=== PATIENT | male | born 1940 | race Caucasian/White ===

== ENCOUNTER 2019-08-20 08:02 | Day surgery (SDC) | payer BC, MEDICARE ==
[2019-08-20] MEDS ORDERED: Dextrose 5%-Lactated Ringers 1,000 ML IV SCH (08:30)
[2019-08-20] MEDS ORDERED: Propofol 200 MG/20 ML SDV ONE (09:59)
[2019-08-20] MEDS ORDERED: Midazolam 1 MG/ML 2 ML SDV ONE (09:59)
[2019-08-20] MEDS ORDERED: fentaNYL 100 MCG/2 ML SDV ONE (09:59)
--- NOTE | 2019-08-30 10:49 | OR ---
DATE OF PROCEDURE: 08/20/2019 SURGEON: Harry Waters MD PREOPERATIVE DIAGNOSIS: History of colon polyps. POSTOPERATIVE DIAGNOSIS: 1. No recurrent colon polyps. 2. Pandiverticulosis. 3. Widespread colonic arteriovenous malformations. OPERATIVE PROCEDURE: Flexible colonoscopy. ANESTHESIA: IV sedation. INDICATION FOR PROCEDURE: This 79-year-old male, presenting for followup colonoscopy, has had a history of previous colon polyps. Plan is to proceed with a colonoscopy with biopsies and/or polypectomies as indicated. Potential risks including bleeding and perforation were discussed, and the patient wishes to proceed. DETAILS OF PROCEDURE: The patient was taken to the operating room and placed in a left lateral decubitus position. IV sedation was administered after which the initial digital rectal exam was performed and was unremarkable. The colonoscope was then passed to the level of the cecum. This included retroflexion view of the rectum which showed uncomplicated hemorrhoidal columns. Otherwise, the prep was good, and there were no recurrent polyps or other signs of neoplasia. The patient did have fairly extensive pandiverticulosis, but without complication, and there were also widespread colonic AV malformations seen. The scope was then withdrawn, the above findings reconfirmed, and the procedure then concluded. The patient's health at this point is fairly good, and it would be the primary care physician's discretion whether or not to recommend a colonoscopy in 5 years. At that point, he would be 84 years old. Harry Waters MD /[id number]
== END 2019-08-20 11:30 | disposition home or self-care (01) ==
LOC: JP.SDS 08:02
PROVIDERS: ATTEND Surgery
DX: Z12.11 Encounter for screening for malignant neoplasm of colon (principal); K57.30 Diverticulosis of large intestine without perforation or abscess without bleeding; Q27.33 Arteriovenous malformation of digestive system vessel; K64.9 Unspecified hemorrhoids; I12.9 Hypertensive chronic kidney disease with stage 1 through stage 4 chronic kidney disease, or unspecified chronic kidney disease; N18.9 Chronic kidney disease, unspecified; K21.9 Gastro-esophageal reflux disease without esophagitis; Z86.010 Personal history of colon polyps
CPT/HCPCS: G0121; J2250; J2704; J3010; J7121

== ENCOUNTER 2025-03-05 21:50 | Emergency (ER) | payer MEDICARE ==
[2025-03-06 00:08] LABS: BASOPHILS ABSOLUTE AUTO 0.04 K/uL (0.00-0.10); BASOPHILS PERCENT AUTO 0.4 % (0.1-1.3); EOSINOPHILS ABSOLUTE AUTO 0.02 K/uL (0.00-0.40); EOSINOPHILS PERCENT AUTO 0.2 % (0.0-5.4); IMMATURE GRAN ABSOLUTE AUTO 0.03 K/uL (0.00-0.23); IMMATURE GRAN PERCENT AUTO 0.3 % (0.0-0.7); LYMPHOCYTES ABSOLUTE AUTO 1.72 K/uL (0.8-3.3); LYMPHOCYTES PERCENT AUTO 18.7 % (11.4-47.7); MONOCYTES ABSOLUTE AUTO 0.97 K/uL (0.20-0.90); MONOCYTES PERCENT AUTO 10.5 % (3.3-12.6); NEUTROPHILS ABSOLUTE AUTO 6.42 K/uL (1.0-7.6); NEUTROPHILS PERCENT AUTO 69.9 % (40.0-78.1); PLATELET COUNT,PLT 108 K/uL (130-375); RED BLOOD CELL COUNT 4.75 M/uL (4.14-5.76); WHITE BLOOD CELL COUNT,WBC 9.2 K/uL (3.2-11.0)
[2025-03-06 00:19] LABS: APPEARANCE,URINE CLEAR (CLEAR); EPITHELIAL CELLS,URINE NOT SEEN; GLUCOSE,URINE NEGATIVE (NEGATIVE); OCCULT BLOOD,URINE TRACE-INTACT (NEGATIVE)
[2025-03-06 00:22] LABS: BLOOD UREA NITROGEN,BUN 19.0 mg/dL (7-18); CARBON DIOXIDE,CO2 32.0 mmol/L (21-32); CHLORIDE,CL 101.0 mmol/L (100-108); CREATININE 1.5 mg/dL (0.8-1.3); EST CRCL DRUG DOSING (CG) 34.89 mL/min; ESTIMATED GFR 46.0 mL/min (>60); GLUCOSE RANDOM 131.0 mg/dL (74-106); POTASSIUM,K 5.1 mmol/L (3.6-5.2); SODIUM,NA 138.0 mmol/L (140-148)
[2025-03-06 00:30] LABS: LACTIC ACID 1.1 mmol/L (0.4-2.0)
[2025-03-06] MEDS: Amoxicillin/Clavulanate K 875-125 MG Tab PO ONE (02:09)
== END 2025-03-06 02:19 | disposition home or self-care (01) ==
LOC: JP.ED 21:50
DX: J18.9 Pneumonia, unspecified organism (principal); I10 Essential (primary) hypertension; E78.00 Pure hypercholesterolemia, unspecified; K21.9 Gastro-esophageal reflux disease without esophagitis; Z90.49 Acquired absence of other specified parts of digestive tract; Z79.899 Other long term (current) drug therapy
CPT/HCPCS: 36415; 71045; 80048; 81001; 83605; 85025; 86140; 99284; A9270; U0002